=== PATIENT | male | born 1950 | race Two or more races ===

== ENCOUNTER 2016-05-30 11:37 | Emergency (ER) | payer MEDICARE, MEDICAID ==
[~2016-05-30] VITALS: Ht 170.2 cm; Wt 122.5 kg
[~2016-05-30 11:37] MED LIST: CARVEDILOL25 MG; METFORMIN HCL500 M1
[2016-05-30 12:14] VITALS: BP 170/72
[2016-05-30 12:40] VITALS: BP 134/69
[2016-05-30 12:50] LABS: TROPONIN I < 0.30 ng/mL (<=0.30)
[2016-05-30 12:52] LABS: EOSINOPHILS % (AUTO) 0.4 % (0.0-3.0); LYMPHOCYTES % (AUTO) 30.2 % (20.0-45.0); MEAN CORPUSCULAR HGB CONC 33.4 G/DL (32.0-36.0); MEAN CORPUSCULAR VOLUME 87 FL (80-99); MEAN PLATELET VOLUME 8.3 FL (6.5-10.1); MONOCYTES % (AUTO) 8.7 % (1.0-10.0); NEUTROPHILS % (AUTO) 59.7 % (45.0-75.0); PLATELET COUNT 236 K/UL (150-450); RED BLOOD COUNT 5.87 M/UL (4.70-6.10); RED CELL DISTRIBUTION WIDTH 13.1 % (11.6-14.8); WHITE BLOOD COUNT 8.4 K/UL (4.8-10.8)
[2016-05-30 12:53] LABS: ALANINE AMINOTRANSFERASE 54 U/L (3-41); ALBUMIN/GLOBULIN RATIO 1.5 (1.0-2.7); ANION GAP 21 (5-15); ASPARTATE AMINO TRANSFERASE 36 U/L (5-40); CALCIUM 9.7 mg/dL (8.6-10.2); CARBON DIOXIDE 22 mEQ/L (20-30); CHLORIDE 95 mEQ/L (98-107); CREATININE 0.8 mg/dL (0.7-1.2); GLOMERULAR FILTRATION RATE > 60 mL/min (>60); HEMOLYSIS 8; SODIUM 138 mEQ/L (135-145); TOTAL PROTEIN 7.3 g/dL (6.6-8.7)
[2016-05-30 13:03] LABS: CKMB 7.2 ng/mL (< 6.7)
--- NOTE | 2016-05-30 13:34 | Diagnostic Imaging Report ---
Indication: Chest Pain Comparison: 09/13/14 A single view chest radiograph was obtained. Findings: Pulmonary vascularity appears prominent. Heart is enlarged. There is a pacemaker on the left. Impression: Some prominence of the pulmonary vascularity without overt CHF. No interval change
--- NOTE | 2016-05-30 14:09 | Diagnostic Imaging Report ---
Indication: Trauma. Comparison: None Findings: 4 views of the left chest wall was obtained for evaluation of the ribs. Bony mineralization is diffusely decreased. There is no acute fracture identified. A pacemaker is noted. There is no soft tissue swelling demonstrated. The lung is essentially clear. The costophrenic angle is sharp. Other osseous structures visualized are unremarkable. Impression: No acute injury
[2016-05-30] MEDS ORDERED: ACETAMINOPHEN-1 EAC1 ORAL (14:48)
[2016-05-30 15:40] VITALS: BP 136/73
[2016-05-30 16:06] VITALS: BP 136/73
--- NOTE | 2016-05-31 07:26 | Emergency Room Report ---
History of Present Illness General Chief Complaint: Chest Pain Present Illness HPI 65 YOM with left chest pain s/p accidental trip and fall and landed on bottle that impacted his chest under left breast. Denies that bottle broke. Has sharp pain in that area radiating to back since. No other injury. Feels well otherwise. Allergies: Coded Allergies: No Known Allergies (Verified Allergy, Unknown, 11/26/08) Patient History Past Medical History: see triage record Past Surgical History: none Pertinent Family History: none Social History: Denies: alcohol use, drug use, smoking Immunizations: UTD Reviewed Nursing Documentation: PMH: Agreed, PSxH: Agreed Nursing Documentation-PMH Hx Cardiac Problems: Yes - heart surgery Hx Hypertension: Yes Hx Pacemaker: Yes - left chest Hx Diabetes: Yes Review of Systems All Other Systems: negative except mentioned in HPI Physical Exam Vital Signs Date Time Temp Pulse Resp B/P Pulse Ox O2 Delivery O2 Flow Rate FiO2 05/30/16 12:07 98.2 77 14 170/72 100 Room Air Sp02 EP Interpretation: reviewed, abnormal General Appearance: normal inspection, well appearing, no apparent distress, alert, GCS 15, non-toxic Head: normocephalic, atraumatic Eyes: bilateral eye EOMI, bilateral eye PERRL ENT: normal ENT inspection, hearing grossly normal, normal voice Neck: normal inspection, full range of motion, supple, no bony tend Respiratory: normal inspection, lungs clear, normal breath sounds, no respiratory distress, no retraction, no wheezing, other - Mild ttp to left chest under left breast. No focal ttp to particular rib. No obvious deformity or signs of trauma to chest, chest symmetrical Cardiovascular #1: regular rate, rhythm, no edema Gastrointestinal: normal inspection, normal bowel sounds, non tender, soft, no guarding, no hernia, overweight Genitourinary: no CVA tenderness Musculoskeletal: normal inspection, back normal, normal range of motion, Halle' s Sign negative Neurologic: normal inspection, alert, oriented x3, responsive, accordion tuner III-XII nml as tested, motor strength/tone normal, speech normal Psychiatric: normal inspection, judgement/insight normal, mood/affect normal Skin: normal inspection, normal color, no rash Lymphatic: normal inspection Medical Decision Making Diagnostic Impression: Primary Impression: Blunt chest trauma Qualified Codes: S29.8XXA - Other specified injuries of thorax, initial encounter Additional Impression: Chest trauma Qualified Codes: S29.9XXA - Unspecified injury of thorax, initial encounter ER Course Chest and rib seris xray negative for acute trauma ECG is NSR. RBBB. Troponin 0. No signs of cardiac stunning or arrythmia from blunt chest trauma Pain and BP improved after analgesia DC with same to use at home Recommended PMD followup DC home EKG Diagnostic Results Rate: normal Rhythm: NSR ST Segments: no acute changes ASA given to the pt in ED: No Rhythm Strip Diag. Results EP Interpretation: yes Rate: 75 Rhythm: NSR, no PVC's, no ectopy Chest X-Ray Diagnostic Results EP Interpretation: Yes Findings: no consolidation, no effusion, no pneumothorax, other - Cardiomegaly Number of Views: 1 Other Impression Left sided ribs series 4 views ED interpretation No acute rib fx, dislocation, PTX or soft tissue swelling Last Vital Signs Date Time Temp Pulse Resp B/P Pulse Ox O2 Delivery O2 Flow Rate FiO2 05/30/16 16:06 98.6 85 15 136/73 100 Room Air Status: improved Disposition: HOME, SELF-CARE Condition: Improved Scripts Acetaminophen With Codeine (T#3) (TYLENOL #3 TAB*) Y Tab 1 TAB ORAL Q8H Y for For Pain, #20 TAB Prov: NIKA FREGOSO M.D. 05/30/16 Patient Instructions: Blunt Chest Trauma Additional Instructions: - Take Tyelnol with codeine as needed for chest wall pain (do NOT drive or operate machinery if taking this medication) - Follow up with your doctor in 2-3 days NIKA FREGOSO M.D. May 31, 2016 07:26
--- NOTE | 2016-06-02 15:09 | Cardiology Report ---
APPROVED REPORT EKG Measurement Heart [id number] Normal sinus rhythm Right bundle branch block Abnormal ECG
== END 2016-05-30 16:06 | disposition home or self-care (01) ==
LOC: EMR 12:25
DX: S29.8XXA Other specified injuries of thorax, initial encounter (principal); E11.9 Type 2 diabetes mellitus without complications; I10 Essential (primary) hypertension; Z95.0 Presence of cardiac pacemaker; W01.198A Fall on same level from slipping, tripping and stumbling with subsequent striking against other object, initial encounter; Y92.9 Unspecified place or not applicable; Y99.8 Other external cause status
CPT/HCPCS: 36415; 71010; 80053; 82550; 82553; 84484; 85025; 93005; 99284

== ENCOUNTER 2018-01-01 17:23 | Emergency (ER) | payer MEDICARE, MEDICAID ==
[~2018-01-01] VITALS: Ht 200.7 cm; Wt 124.7 kg
[~2018-01-01 17:23] MED LIST changes: +ACETAMINOPHEN-1 EAC1 ORAL
[2018-01-01] MEDS ORDERED: BYDUREON2 MG SUBQ (17:38)
[2018-01-01] MEDS ORDERED: CARVEDILOL12.5 MG ORAL (17:38)
[2018-01-01] MEDS ORDERED: POTASSIUM CHLO20 ME2 ORAL (17:38)
[2018-01-01] MEDS ORDERED: ATENOLOL25 MG ORAL (17:38)
[2018-01-01] MEDS ORDERED: PLAVIX75 MG ORAL (17:38)
[2018-01-01] MEDS ORDERED: METFORMIN HCL1000 M1 ORAL (17:38)
[2018-01-01] MEDS ORDERED: TRADJENTA5 MG PO (17:38)
[2018-01-01] MEDS ORDERED: FUROSEMIDE40 MG ORAL (17:38)
[2018-01-01] MEDS ORDERED: XANAX0.25 MG ORAL (17:38)
[2018-01-01] MEDS ORDERED: LORATADINE10 M1 PO (17:38)
[2018-01-01] MEDS ORDERED: VASCEPA1 GM PO (17:38)
[2018-01-01] MEDS ORDERED: JARDANCE ORAL (17:38)
[2018-01-01] MEDS ORDERED: GLIMEPIRIDE4 MG ORAL (17:38)
--- NOTE | 2018-01-01 19:07 | Emergency Room Report ---
History of Present Illness General Chief Complaint: Hypertension Source: Patient, Medical Record Present Illness HPI 67-year-old male presents to the emergency department complaining of elevated blood pressure reading, increase lower extremity edema as well as several episodes of chest pain earlier today. Patient reports history of having a pacemaker, cardiac stent placement, CHF, HTN and DM. Patient denies fevers or chills. Patient reports recent ankle surgery on the right ankle proximally 6 months ago which included rehabilitation times one month. Patient reports that that leg is more swollen than his left leg and this is been somewhat of a chronic condition since the surgery however today his edema is much worse. Patient states that he was resting sitting down when he had episode of chest pain today. Patient states it went away on its own he describes it as a sharp stabbing pain in the left anterior chest. He denies dyspnea or orthopnea. He denies cough or sputum production. Allergies: Coded Allergies: No Known Allergies (Verified Allergy, Unknown, 11/26/08) Patient History Past Medical History: see triage record Past Surgical History: none Pertinent Family History: none Reviewed Nursing Documentation: PMH: Agreed; PSxH: Agreed Nursing Documentation-PMH Past Medical History: No History, Except For Hx Cardiac Problems: Yes - heart surgery Hx Hypertension: Yes Hx Pacemaker: Yes - left chest Hx Diabetes: Yes Review of Systems All Other Systems: negative except mentioned in HPI Physical Exam Vital Signs Date Time Temp Pulse Resp B/P (MAP) Pulse Ox O2 Delivery O2 Flow Rate FiO2 01/01/18 17:32 98.5 70 18 198/99 97 Room Air 98.4 Sp02 EP Interpretation: reviewed, normal General Appearance: no apparent distress, alert, GCS 15, non-toxic, obese Head: normocephalic, atraumatic Eyes: bilateral eye normal inspection, bilateral eye PERRL ENT: hearing grossly normal, normal voice Neck: full range of motion Respiratory: chest non-tender, lungs clear, normal breath sounds, no rhonchi, no respiratory distress, no wheezing, speaking full sentences Cardiovascular #1: regular rate, rhythm, edema - 2+ pitting edema bilaterally, more on the right LE Gastrointestinal: non tender, soft Musculoskeletal: back normal, gait/station normal - compensatory gait with crutches, normal range of motion, non-tender Neurologic: alert, oriented x3, responsive, motor strength/tone normal, sensory intact, normal gait - compensatory gait with crutches, speech normal, grossly normal Psychiatric: judgement/insight normal Skin: normal color, no rash, warm/dry, well hydrated Medical Decision Making PA Attestation Dr. Luo is my supervising Physician whom patient management has been discussed with. Diagnostic Impression: Primary Impression: Chest pain Qualified Codes: R07.89 - Other chest pain Additional Impressions: Peripheral edema Elevated blood pressure reading Hx of cardiac catheterization ER Course 67-year-old male presents to the emergency department complaining of elevated blood pressure reading, increase lower extremity edema as well as several episodes of chest pain earlier today. Patient reports history of having a pacemaker, cardiac stent placement, CHF, HTN and DM. Patient denies fevers or chills. Patient reports recent ankle surgery on the right ankle proximally 6 months ago which included rehabilitation times one month. Patient reports that that leg is more swollen than his left leg and this is been somewhat of a chronic condition since the surgery however today his edema is much worse. Patient states that he was resting sitting down when he had episode of chest pain today. Patient states it went away on its own he describes it as a sharp stabbing pain in the left anterior chest. He denies dyspnea or orthopnea. He denies cough or sputum production. Ddx considered but are not limited to GA, CHF, DVT, pneumonia, contusion, costochondritis, PE, ACS, Shoulder strain, Chest wall contusion. aortic dissection, peripheral vascular disease just to name a few. Vital signs: are WNL, pt. is afebrile H&PE are most consistent with lower extremity edema in a person with multiple cardiac RF's, and DVT RF's ORDERS: - EK NSR no acute ST changes, RBBB -CBC: unremarkable -CMP: mildly elevated LFT's -CK-MB: 6.3 -Troponin 0.00 -BNP: 72 CXR: increased heart size and pulmonary vascularity, no effusion or atelectasis. -US unilateral RLE: negative for DVT. ED INTERVENTIONS: - PT. placed on cardiac monitoring. -His blood pressure came down with rest while awaiting labs and imaging studies. d/w pt. that I don't believe he requires emergent adjustment of his blood pressure medications at this time. and prefer him to continue medication management with his deputy sheriff bailiff whom he has an appt. with. Pt. agrees and plan is made that if BP elevates again to return to the ED. Also gave pt. ED return precautions for worsening or new symptoms. DISCHARGE: At this time pt. is stable for d/c to home. Will provide printed patient care instructions, and any necessary prescriptions. Care plan and follow up instructions have been discussed with the patient prior to discharge. Labs Test 01/01/18 18:50 White Blood Count 7.8 K/UL (4.8-10.8) Red Blood Count 5.92 M/UL (4.70-6.10) Hemoglobin 17.2 G/DL (14.2-18.0) Hematocrit 49.7 % (42.0-52.0) Mean Corpuscular Volume 84 FL (80-99) Mean Corpuscular Hemoglobin 29.0 PG (27.0-31.0) Mean Corpuscular Hemoglobin Concent 34.5 G/DL (32.0-36.0) Red Cell Distribution Width 13.2 % (11.6-14.8) Platelet Count 100 K/UL (150-450) Mean Platelet Volume 7.8 FL (6.5-10.1) Neutrophils (%) (Auto) 67.7 % (45.0-75.0) Lymphocytes (%) (Auto) 24.0 % (20.0-45.0) Monocytes (%) (Auto) 6.9 % (1.0-10.0) Eosinophils (%) (Auto) 0.7 % (0.0-3.0) Basophils (%) (Auto) 0.7 % (0.0-2.0) Sodium Level 135 MMOL/L (136-145) Potassium Level 3.9 MMOL/L (3.5-5.1) Chloride Level 100 MMOL/L (98-107) Carbon Dioxide Level 27 MMOL/L (21-32) Anion Gap 8 mmol/L (5-15) Blood Urea Nitrogen 15 mg/dL (7-18) Creatinine 0.9 MG/DL (0.55-1.30) Estimat Glomerular Filtration Rate > 60 mL/min (>60) Glucose Level 173 MG/DL (74-106) Calcium Level 10.1 MG/DL (8.5-10.1) Total Bilirubin 0.4 MG/DL (0.2-1.0) Aspartate Amino Transf (AST/SGOT) 54 U/L (15-37) Alanine Aminotransferase (ALT/SGPT) 105 U/L (12-78) Alkaline Phosphatase 94 U/L (46-116) Total Creatine Kinase 235 U/L (26-308) Creatine Kinase MB 6.3 NG/ML (0.0-3.6) Creatine Kinase MB Relative Index 2.6 Troponin I 0.000 ng/mL (0.000-0.056) Pro-B-Type Natriuretic Peptide 72 pg/mL (0-125) Total Protein 8.3 G/DL (6.4-8.2) Albumin 4.0 G/DL (3.4-5.0) Globulin 4.3 g/dL Albumin/Globulin Ratio 0.9 (1.0-2.7) EKG Diagnostic Results EP Interpretation: Dr. Luo Rate: normal - 79 BPM Rhythm: NSR ST Segments: no acute changes Other Impression RBBB ASA given to the pt in ED: No PA Scribe Text This Interpretation was scribed by KANE Lutz. Chest X-Ray Diagnostic Results Chest X-Ray Diagnostic Results : Chest X-Ray Ordered: Yes # of Views/Limited/Complete: 1 View Indication: Chest Pain EP Interpretation: Yes PA Xray: Interpretation reviewed, by supervising MD, and agrees with findings. Interpretation: no consolidation, no effusion, no pneumothorax, other - enlarged heart size, and increased vascularity. Impression: No acute disease Electronically Signed by: Leilani Lutz PA-C CT/MRI/US Diagnostic Results CT/MRI/US Diagnostic Results : Imaging Test Ordered: Unilateral Venous Duplex US of the RLE Impression negative for DVT Last Vital Signs Date Time Temp Pulse Resp B/P (MAP) Pulse Ox O2 Delivery O2 Flow Rate FiO2 01/01/18 18:01 70 18 Room Air 01/01/18 17:32 98.5 198/99 97 98.4 Disposition: HOME, SELF-CARE Condition: Stable Leilani Lutz Jan 01, 2018 19:07
[2018-01-01 19:15] VITALS: BP 162/65
[2018-01-01 19:18] LABS: ANION GAP 8 mmol/L (5-15); BLOOD UREA NITROGEN 15 mg/dL (7-18); CALCIUM 10.1 MG/DL (8.5-10.1); CARBON DIOXIDE 27 MMOL/L (21-32); CHLORIDE 100 MMOL/L (98-107); CREATININE 0.9 MG/DL (0.55-1.30); POTASSIUM 3.9 MMOL/L (3.5-5.1); SODIUM 135 MMOL/L (136-145)
[2018-01-01 19:20] LABS: BASOPHILS % (AUTO) 0.7 % (0.0-2.0); EOSINOPHILS % (AUTO) 0.7 % (0.0-3.0); HEMATOCRIT 49.7 % (42.0-52.0); HEMOGLOBIN 17.2 G/DL (14.2-18.0); MEAN CORPUSCULAR VOLUME 84 FL (80-99); MONOCYTES % (AUTO) 6.9 % (1.0-10.0); NEUTROPHILS % (AUTO) 67.7 % (45.0-75.0); PLATELET COUNT 100 K/UL (150-450); RED BLOOD COUNT 5.92 M/UL (4.70-6.10); RED CELL DISTRIBUTION WIDTH 13.2 % (11.6-14.8); WHITE BLOOD COUNT 7.8 K/UL (4.8-10.8)
[2018-01-01 19:33] LABS: ALANINE AMINOTRANSFERASE 105 U/L (12-78); ALBUMIN/GLOBULIN RATIO 0.9 (1.0-2.7); ALKALINE PHOSPHATASE 94 U/L (46-116); ASPARTATE AMINO TRANSFERASE 54 U/L (15-37); BILIRUBIN,TOTAL 0.4 MG/DL (0.2-1.0); CKMB 6.3 NG/ML (0.0-3.6); CREATINE KINASE 235 U/L (26-308)
[2018-01-01 20:52] VITALS: BP 159/66
[2018-01-01 21:18] VITALS: BP 159/66
--- NOTE | 2018-01-02 08:39 | Diagnostic Imaging Report ---
Indication: Right lower extremity pain and swelling. Technique: Duplex Doppler imaging performed from the common femoral vein to the popliteal vein. FINDINGS: Normal compressibility demonstrated from the common femoral vein to the popliteal vein. Respiratory phasicity and good augmentation demonstrated on waveform analysis. There is no evidence of thrombosis. IMPRESSION: No evidence of deep venous thrombosis within the lower extremity.
--- NOTE | 2018-01-02 12:05 | Diagnostic Imaging Report ---
Indication: Chest pain Comparison: 05/30/2016 A single view chest radiograph was obtained. Findings: Pulmonary vascularity is prominent but lung volumes are low. The heart is enlarged. Pacemaker noted on the left. IMPRESSION: Query mild CHF. Correlate clinically
--- NOTE | 2018-01-05 12:18 | Cardiology Report ---
APPROVED REPORT EKG Measurement Heart [id number] Normal sinus rhythm Right bundle branch block Abnormal ECG
== END 2018-01-01 21:22 | disposition home or self-care (01) ==
LOC: EMR 19:36
DX: R07.9 Chest pain, unspecified (principal); R60.0 Localized edema; I11.0 Hypertensive heart disease with heart failure; I50.9 Heart failure, unspecified; E11.9 Type 2 diabetes mellitus without complications; Z95.0 Presence of cardiac pacemaker; Z95.5 Presence of coronary angioplasty implant and graft
CPT/HCPCS: 36415; 71045; 80053; 82550; 82553; 83880; 84484; 85025; 93005; 93971; 99284